=== PATIENT | male | born 1975 | race Caucasian/White ===

== ENCOUNTER 2018-01-29 11:40 | Outpatient (CLI) | payer BC, SELFPAY ==
[2018-01-29 17:05] LABS: Abs Immature Grans 0.01 k/cumm (0.0-0.09); Absolute Basophil Count 0.03 k/cumm (0.0-0.2); Absolute Eosinophil Count 0.09 k/cumm (0.0-0.7); Absolute Lymphocyte Count 2.67 k/cumm (1.2-3.4); Absolute Monocyte Count 0.58 k/cumm (0.11-0.7); Absolute Neutrophil Count 2.75 k/cumm (1.2-6.7); Basophils % 0.5; Eosinophils % 1.5; HCT 42.6 % (40.0-50.0); HGB 14.5 g/dL (13.5-17.5); Immature Grans % 0.2; Lymphocytes % 43.6; Mean Corpuscular Hemoglobin 31.3 pg (27.0-33.0); Mean Platelet Volume 10.1 fL (8.0-11.0); Monocytes % 9.5; Neutrophils % 44.7; Platelet Count 171 x1000/uL (130-400); RBC 4.63 m/cumm (4.50-6.00); RBC Distribution Width 12.4 % (11.8-14.1); White Blood Cell Count 6.13 k/cumm (4.4-10.8)
[2018-01-29 18:19] LABS: ALT 28 U/L (12-78); AST 15 U/L (15-37); Albumin 4.1 g/dL (3.4-5.0); Alkaline Phosphatase 73 U/L (46-116); Anion Gap 7.6 mmol/L (3-11); BUN 19 mg/dL (7-18); Bilirubin, Total 0.3 mg/dL (0.2-1.0); CO2 30.4 mmol/L (21.0-32.0); CREATININE 1.02 mg/dL (0.70-1.30); Calcium 9.2 mg/dL (8.5-10.1); Chloride 102 mmol/L (98-107); Glucose 74 mg/dL (70-100); LDH 130 U/L (85-227); Sodium 140 mmol/L (136-145); Total Protein 6.4 g/dL (6.4-8.2)
== END 2018-01-29 12:00 ==
PROVIDERS: PCP Internal Medicine; Visit Provider Internal Medicine Hematology & Oncology
DX: C83.30 Diffuse large B-cell lymphoma, unspecified site (principal)
CPT/HCPCS: 36415; 80053; 83615; 85025

== ENCOUNTER 2018-07-14 00:45 | Outpatient (CLI) | payer BC, SELFPAY ==
--- NOTE | 2018-07-14 07:30 | MERGE_ITS ---
*[facility]* *[facility]* [address] [place] [address] Date of study: 07/14/2018 Transthoracic Echocardiography M-mode, complete 2D, complete spectral Doppler, and color Doppler *STUDY CONCLUSIONS* Summary: 1. Left ventricle: The cavity size was normal. Wall thickness was normal. Systolic function was normal. The estimated ejection fraction was 60-65%. Wall motion was normal; there were no regional wall motion abnormalities. Diastolic parameters were normal. 2. Mitral valve: Mild thickening, consistent with myxomatous proliferation. There was mild regurgitation. 3. Right ventricle: The cavity size was normal. Wall thickness was normal. Systolic function was normal. *PATIENT PRESENTATION* Height: 177.8cm ((70in) ) S/D Pressure: 120 / 78 Weight: 83.5kg ((183.6lb) ) BSA: 2.04m^2 Test start time: 07:40 AM. Test stop time: 08:40 AM. CONSULTING Arnold Lagunas MD PERFORMING Unknown PERFORMING [facility] [employer] RT Gualberto (Fior)(CT), TIM ORDERING Karma Castillo REFERRING Karma Castillo *PROCEDURE DATA* Procedure information: The patient was identified by two identifiers. This study was interpreted by [facility]. Pertinent images and digital data are archived for permanent storage and are available for subsequent review. No prior study was available for comparison. Study status: Routine. Transthoracic echocardiography. M-mode, complete 2D, complete spectral Doppler, and color Doppler. A Transthoracic Echocardiogram was performed. Scanning was performed from the parasternal, apical, subcostal, and suprasternal notch acoustic windows. Images were obtained using an [id number] cardiac ultrasound machine. Image quality was adequate. Study completion: The patient tolerated the procedure well. There were no complications. 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 C83.38. s/p Chemotherapy. *CARDIAC ANATOMY* Left ventricle: The cavity size was normal. Wall thickness was normal. Systolic function was normal. The estimated ejection fraction was 60-65%. Wall motion was normal; there were no regional wall motion abnormalities. Diastolic parameters were normal. Aortic valve: Trileaflet; normal thickness leaflets. Mobility was not restricted. Doppler: Transvalvular velocity was within the normal range. There was no stenosis. There was no significant regurgitation. VTI ratio of LVOT to aortic valve: 0.74. Valve area (VTI): 2.6cm^2. Indexed valve area (VTI): 1.3cm^2/m^2. Peak velocity ratio of LVOT to aortic valve: 0.73. Valve area (Vmax): 2.5cm^2. Indexed valve area (Vmax): 1.2cm^2/m^2. Mean velocity ratio of LVOT to aortic valve: 0.72. Valve area (Vmean): 2.5cm^2. Indexed valve area (Vmean): 1.2cm^2/m^2. Mean gradient (S): 2.9mm Hg. Peak gradient (S): 4.7mm Hg. Aorta: Aortic root: The aortic root was normal in size. Ascending aorta: The ascending aorta was normal in size. Mitral valve: Mild thickening, consistent with myxomatous proliferation. Mobility was not restricted. No echocardiographic evidence for prolapse. Doppler: Transvalvular velocity was within the normal range. There was no evidence for stenosis. There was mild regurgitation. Valve area by pressure half-time: 3.2cm^2. Indexed valve area by pressure half-time: 1.5cm^2/m^2. Left atrium: The atrium was normal in size. Right ventricle: The cavity size was normal. Wall thickness was normal. Systolic function was normal. Pulmonic valve: Structurally normal valve. Doppler: Transvalvular velocity was within the normal range. There was no evidence for stenosis. There was no significant regurgitation. Tricuspid valve: Structurally normal valve. Doppler: Transvalvular velocity was within the normal range. There was no evidence for stenosis. There was trivial regurgitation. Pulmonary artery: Pulmonary systolic pressure was within the normal range, in the range of 25mm Hg to 30mm Hg. Right atrium: The atrium was normal in size. Catheter noted in right atrium. Pericardium: There was no pericardial effusion. Systemic veins: Inferior vena cava: Well visualized. The vessel was patent and normal in size. The respirophasic diameter changes were in the normal range (greater than or equal to 50%). Baseline ECG: Bradycardia. Measurements Left ventricle Value Reference LV ID, ED, PLAX 5.5 cm 3.5 - 6.0 LV ID, ES, PLAX 3.5 cm 2.1 - 4.0 LV PW thickness, ED, PLAX 0.9 cm LV end-diastolic volume, 1-p A2C 112 ml LV ejection fraction, 1-p A2C 61 % LV end-diastolic volume, 1-p A4C 99 ml LV ejection fraction, 1-p A4C 65 % LV e', lateral 0.132 m/sec LV E/e', lateral 3 LV e', medial 0.088 m/sec LV E/e', medial 5 LV e', average 0.11 m/sec LV E/e', average 4 Ventricular septum Value Reference IVS thickness, ED, PLAX 1.0 cm LVOT Value Reference LVOT ID, A-P 2.1 cm LVOT area 3.4 cm^2 LVOT peak velocity, S 0.79 m/sec LVOT mean velocity, S 0.59 m/sec LVOT VTI, S 17.9 cm LVOT peak gradient, S 2.5 mm Hg LVOT mean gradient, S 1.5 mm Hg Stroke volume (SV), LVOT DP 61 ml Stroke index (SV/bsa), LVOT DP 30 ml/m^2 Aortic valve Value Reference Aortic valve peak velocity, S 1.1 m/sec Aortic valve mean velocity, S 0.82 m/sec Aortic valve VTI, S 24.0 cm Aortic mean gradient, S 2.9 mm Hg Aortic peak gradient, S 4.7 mm Hg VTI ratio, LVOT/AV 0.74 Aortic valve area, VTI 2.6 cm^2 Velocity ratio, peak, LVOT/AV 0.73 Aortic valve area, peak velocity 2.5 cm^2 Velocity ratio, mean, LVOT/AV 0.72 Aortic valve area, mean velocity 2.5 cm^2 Aortic valve area/bsa, mean velocity 1.2 cm^2/m^2 Aorta Value Reference Aortic root ID, ED 3.1 cm Ascending aorta ID, A-P, S 3.3 cm Left atrium Value Reference LA ID, A-P, ES 3.1 cm LA ID/bsa, A-P 1.5 cm/m^2 <=2.2 LA area, ES, A4C 19.3 cm^2 8.8 - 23.4 LA area, ES, A2C 18 cm^2 LA volume/bsa, ES, 1-p A4C 29 ml/m^2 LA volume, ES, 2-p 53 ml LA volume/bsa, ES, 2-p 26 ml/m^2 LA/aortic root ratio 0.99 Mitral valve Value Reference Mitral E-wave peak velocity 0.46 m/sec Mitral A-wave peak velocity 0.37 m/sec Mitral deceleration time (H) 241 ms 150 - 230 Mitral pressure half-time 70 ms Mitral E/A ratio, peak 1.24 Mitral valve area, PHT, DP 3.2 cm^2 Pulmonary veins Value Reference Pulmonary vein peak velocity, S 0.55 m/sec Pulmonary vein peak velocity, D 0.44 m/sec Pulmonary vein velocity ratio, peak, 1.25 S/D Pulmonary vein A-wave reversal peak 0.25 m/sec velocity Tricuspid valve Value Reference Tricuspid regurg peak velocity 2.3 m/sec Tricuspid peak RV-RA gradient 21.7 mm Hg Right atrium Value Reference RA area, ES, A4C 14.3 cm^2 8.3 - 19.5 Legend: (L) and (H) sadi values outside specified reference range. I have personally reviewed the images and have reviewed and edited the reported findings. Electronically signed by Car Whitney 07/14/2018 09:13
== END 2018-07-14 01:05 ==
PROVIDERS: PCP Internal Medicine; Visit Provider Nurse Practitioner Family
DX: C83.38 Diffuse large B-cell lymphoma, lymph nodes of multiple sites (principal); Z92.21 Personal history of antineoplastic chemotherapy; I34.0 Nonrheumatic mitral (valve) insufficiency
CPT/HCPCS: 93306

== ENCOUNTER 2020-04-10 12:38 | Outpatient (REF) | payer BC, SELFPAY ==
[2020-04-10 15:44] LABS: HCT 40.8 % (40.0-50.0); MCH 31.7 pg (27.0-33.0); MCHC 34.3 % (32.0-36.0); MCV 92.3 fL (80-95); MPV 10.5 fL (8.0-11.0); Platelet Count 169 10^3/uL (130-400); RBC 4.42 10^6/uL (4.36-5.78); RDW 11.9 % (11.8-14.1); RDW-SD 41.1 fL
[2020-04-10 16:21] LABS: ALT 30 U/L (16-63); AST 22 U/L (15-37); Alkaline Phosphatase 76 U/L (46-116); Anion Gap 5.9 mmol/L (3-11); BUN 15 mg/dL (7-18); Bilirubin, Total 0.4 mg/dL (0.2-1.0); CO2 30.1 mmol/L (21.0-32.0); CREATININE 1.09 mg/dL (0.70-1.30); Chloride 103 mmol/L (98-107); Glucose 84 mg/dL (74-106); Sodium 139 mmol/L (136-145); TSH 2.68 uIU/mL (0.36-3.74); Total Protein 6.3 g/dL (6.4-8.2)
[2020-04-10 21:28] LABS: PSA, Screening 0.6 ng/mL (0.0-2.5)
[2020-04-12 11:06] LABS: IgA 244 mg/dL (85-499); Interpretation (See Note); Tissue Transglutaminase IgA <1.2 U/mL (<4.0)
[2020-04-13 16:42] LABS: Testosterone, Free 4.28 ng/dL (4.26-16.4); Testosterone, Total 306 ng/dL (240-950)
== END 2020-04-10 12:58 ==
LOC: NCHCN 12:38
PROVIDERS: PCP Internal Medicine; Visit Provider Internal Medicine
DX: Z85.72 Personal history of non-Hodgkin lymphomas (principal)
CPT/HCPCS: 80053; 82784; 83516; 84153; 84402; 84403; 85027; 84443

== ENCOUNTER 2020-09-11 08:55 | Day surgery (SDC) | payer BC, SELFPAY ==
--- NOTE | 2020-09-11 06:49 | W.COLOREPORT ---
Date of service: 09/11/20 Time of Service: 11:21 Colonoscopy Report Date of procedure: 09/11/20 Pre-op diagnosis general: Colon Cancer Screening Post-op diagnosis procedure note: other (polyps) Procedure: Colonoscopy with polypectomy Surgeon: Natalia Florian Anesthesia Type: General:No Airway (ASA 2/Kiara Dao, ODALYS) Estimated blood loss (mL): 3 Pathology: other (Ascending polyp, Transverse polyp) Complications: None Disposition: same day Indications: The patient is here for Colonoscopy pre-op. He has no family history of colon cancer. He has not had any bowel habit changes. -Discussed colonoscopy bowel prep as well as the procedure. Discussed possible complications of the procedure to include bleeding, pain, perforation, missed small lesion/polyp, sore throat, aspiration and adverse reaction to the medications. Questions were answered to patient?s satisfaction. No guarantees were implied or given. Prep: Miralax/Dulcolax Procedure Start Time: 10:58 Procedure End Time: 11:16 Retraction Time: 11 minutes Findings: 2 small polyps Procedure Description: After informed consent was obtained the patient was taken to the procedure room and placed in a left decubitous position. Monitors were applied and a time out was done. The patients name, date of , procedure, allergies to medications and metal in their body was reviewed. The patient was then sedated. Once sedated and comfortable a rectal exam was done. External exam was normal. Internal exam revealed a normal sphincter tone and no palpable masses. The prostate felt smooth and slightly enlarged The scope was then introduced and retro-flexed. No internal hemorrhoids, polyps or masses were identified on retro-flexion. The scope was then advanced to the cecum without difficulty. The ileocecal vlave and appendiceal orifice were identified. The prep was adequate. The scope was then slowly retracted over 11 minutes back into the rectum. Polyps were removed with cold forceps in the ascending and transverse colon. There was no diverticulosis noted. The scope was removed and the patient was woken up and taken back to Same day surgery in stable condition. The patient tolerated the procedure well and there were no immediate complications. Follow up: The patient should follow up in 3-5 years unless they develop changes in bowel habits or other new gastrointestinal complaints.
--- NOTE | 2020-09-11 06:50 | W.PM.DSUDISC ---
Discharge Plan Disposition Patient Disposition: HOME Condition: Good Discharge Details Reason For Visit: Colonoscopy Attending Provider: Natalia Florian Primary Care Provider: Arnold Lagunas Home Meds and New Rx's Prescriptions: Discontinued bisacodyl [Dulcolax (bisacodyl)] 5 mg tablet,delayed release (DR/EC) 5 mg PO ONCE Qty: 4 RF: 0 polyethylene glycol 3350 17 gram/dose powder 238 g PO ONCE Qty: 238 RF: 0 Discharge Instructions Instructions: Colorectal Polyps (DC) Additional Instructions: Findings: polyps Follow up: 3-5 years Please call if you develop: fevers >101.5 Nausea or Vomiting Abdominal pain that is not transient Rectal bleeding that is more then a tbsp A hard abdomen and inability to pass gas DAY SURGERY UNIT POST ENDOSCOPY INSTRUCTIONS Instructions for everyone who is given Anesthesia: For your safety, please do the following for the next 24 Hours: a. Do not drive or operate dangerous equipment b. Do not drink alcohol beverages or use any recreational drugs for the first 24 hours or while taking pain medications. The medications in your body may have a reaction that can be dangerous. c. Do not make any important decisions or sign any important papers 1. Generally there are no restrictions on your activity after a day or so has gone by, but you may feel a bit fatigued for a few days. 2. After you arrive home you may have a light meal and return to a normal diet as you can tolerate it without feeling sick to your stomach. 3. After surgery, you may feel pain or discomfort. This should be only transient, but if it persists please contact your doctor. 4. If there are any questions regarding the findings of your procedure, please feel free to contact your doctor. 6. If you are unable to contact your doctor with a problem, contact the hospital at [phone]. 7. Continue all your regular medications unless directed otherwise. I understand the above instructions and have no questions. Signature of Patient or Responsible Adult Escort Date/Time Name of Responsible Adult Escort Signature of Nurse Date/Time Activity:: Activity as Tolerated Diet:: As Tolerated Discharge Orders Discharge Orders: Discharge Order (Routine); Ordered 09/11/20 Ordered By: Natalia Florian
[2020-09-11 09:08] VITALS: BP 128/86; PULSE 63; RESP 16; TEMP 36.5; O2SAT 98
[2020-09-11] MEDS: Lactated Ringers 1,000 ML 80 ML IV (09:39)
--- NOTE | 2020-09-11 10:14 | W.ANESPRE ---
General Info Date of Service Date Performed: 09/11/20 Height: 5 ft 10.08 in Weight: 81.6 kg Body Mass Index (BMI): 25.7 Surgical Procedure: Operation Date: 09/11/20 10:20 Proposed Procedures Side Surgeon p Colonoscopy Natalia Florian MD Meds Allergies and Home Medications Allergies Allergy/AdvReac Type Severity Reaction Status Date / Time No Known Allergies Allergy Unverified 08/25/20 08:07 Home Medication Medication Instructions Recorded bisacodyl 5 mg tablet,delayed 5 mg PO ONCE #4 tab 08/25/20 release polyethylene glycol 3350 17 238 g PO ONCE #238 g 08/25/20 gram/dose oral powder Current Visit Medications: Current Medications Generic Name Dose Route Start Last Admin Trade Name Freq PRN Reason Stop Dose Admin Hyoscyamine Sulfate 0.125 mg 09/11/20 06:51 Hyoscyamine 0.125 Mg Sl/Oral/Chew SL DIRECTED PRN Ringer's Solution 1,000 mls @ 80 mls/hr 09/11/20 06:00 09/11/20 09:39 IV 10/08/20 23:59 80 mls/hr INFUSION NOMAN Administration IV Miscellaneous Supplies 1 each 09/11/20 06:00 Iv Access IV 10/08/20 23:59 DIRECTED NOMAN Ondansetron HCl 4 mg 09/11/20 06:51 Ondansetron 4 Mg/2 Ml Vial IVP Q4H PRN PRN Nausea / Vomiting Sodium Chloride 0 ml 09/11/20 06:00 Normal Saline Flush 10 Ml Syr IV 10/08/20 23:59 PRN PRN Sodium Chloride 0 ml 09/11/20 06:00 Normal Saline 10 Ml Vial IJ 10/08/20 23:59 DIRECTED PRN Sterile Water 0 ml 09/11/20 06:00 Water,Injection,Sterile 10 Ml Vial IJ 10/08/20 23:59 DIRECTED PRN PFSH Active Problems Active Problems: Problem Status Onset Code Screening for colon cancer Z12.11 Medical History Medical History History of B-cell lymphoma Surgical History Surgical History History of arthroscopic knee surgery History of stem cell transplant S/P ACL repair Tobacco Smoking/Tobacco Use Status: Never Alcohol Alcohol Intake: current Alcohol intake frequency: a few times a week Alcohol type: beer Substance Use Substance use: Occasionally Substance use type: marijuana Vital Signs and Lab Results Vital Signs Most Recent Vital Signs in EMR: Most Recent Vital Signs Temp Pulse Resp BP Pulse Ox 36.5 C 63 16 128/86 98 09/11/20 09:08 09/11/20 09:08 09/11/20 09:08 09/11/20 09:08 09/11/20 09:08 Lab Results Blood Type / Crossmatch: No Data to Display Complete Blood Count: No Data to Display Complete Metabolic Panel: No Data to Display Liver Function Panel: No Data to Display Coagulation Panel: No Data to Display Cardiac Panel: No Data to Display Arterial Blood Gas: No Data to Display Venous Blood Gas: No Data to Display Pancreas Panel: No Data to Display Thyroid Panel: No Data to Display Infectious Disease: No Data to Display Blood Cultures: No Data to Display Toxicology Panel: No Data to Display Imaging and Studies Imaging and Studies Echocardiogram Summary: Summary: 1. Left ventricle: The cavity size was normal. Wall thickness was normal. Systolic function was normal. The estimated ejection fraction was 60-65%. Wall motion was normal; there were no regional wall motion abnormalities. Diastolic parameters were normal. 2. Mitral valve: Mild thickening, consistent with myxomatous proliferation. There was mild regurgitation. 3. Right ventricle: The cavity size was normal. Wall thickness was normal. Systolic function was normal.07/14/18 Anesthesia Assessment and Plan Anesthesia History Personal History: No History of Anesthesia Complications Family History: No Family History of Anesthesia Complications Exercise Tolerance Exercise Tolerance: Metabolic Equivalents<4 Pertinent Negatives Pertinent Negatives: No Symptoms of GERD, No Major Cardiovascular Symptoms or Complaints and No Major Pulmonary Symptoms or Complaints Cardiac & Pulmonary Exam Cardiac Exam: Normal S1/S2 Heart Sounds Pulmonary Exam: Clear Bilateral Breath Sounds Airway Exam Known Difficult Airway: No Mallampati Class: 2 Mouth Opening: Normal (> 3cm) Thyromental Distance: Greater than 3 cm Neck Range of Motion: Full ROM Neck Circumference: Normal Teeth Condition: Normal Dentition ASA Classification ASA Score: ASA 2 Emergency Case?: No NPO Status NPO Status: NPO Clears >2 hours, Solids >8 hours Anesthesia Plan Resuscitation Status: Full Code Anesthesia Technique: General Anesthesia Airway Planned: Natural Airway Monitors Used: Standard Monitors
[2020-09-11 10:41] VITALS: BMI 25.7
--- NOTE | 2020-09-11 11:08 | BOWEL_PTH ---
PATIENT: Gideon Stauffer LOC: [facility] U#:[id number] AGE/SX: 45/M ROOM: RE09/11/[address]: Natalia Florian MD : 1975 BED: DIS: 09/11/2020 SPEC #: [id number] RECD: 09/11/20 13:02 STATUS: CALEB REQ #: [id number] DEMARCO: 09/11/20 11:[address]: Natalia Florian DEPT: Surgical Specimen RECD BY: Hailey Fox ENTERED: 09/11/20 13:03 SP TYPE: Bowel OTHR DR: Arnold Lagunas Tissues: 1 - BIOPSY BOWEL 2 - BIOPSY BOWEL Procedures: GROSS AND MICRO LEVEL 4 Comments: [id number]
[2020-09-11 11:27] VITALS: BP 128/72; PULSE 57; RESP 16; TEMP 36.4; O2SAT 100
--- NOTE | 2020-09-11 11:29 | W.ANESPOSTOP ---
Postoperative Evaluation Date, Time and Location Date Performed: 09/11/20 Time Performed: 11:29 Patient Location: Day Surgery Unit Vital Signs Most Recent Imported Vital Signs: Most Recent Vital Signs Temp Pulse Resp BP Pulse Ox 36.5 C 63 16 128/86 98 09/11/20 09:08 09/11/20 09:08 09/11/20 09:08 09/11/20 09:08 09/11/20 09:08 Most Recent Manually Entered Vital Signs: Adult Blood Pressure: 128/72 Heart Rate: 54 Respirations: 14 Oxygen Saturation (%): 100 Temperature (C): 36.2 C Pain Score (0-10 Scale): 0 Pain Score Most Recent Pain Score: 0 Assessment Mental Status: Arousable with meaningful communication Airway and Respiratory Function: Patent airway with normal (patient baseline) respiratory exam Cardiovascular Function: Hemodynamically Stable Hydration Status: Adequately Hydrated Nausea & Vomiting: No Nausea or Vomiting Pain: Pt. Denies Any Pain Peripheral Nerve Block: Patient did not receive a nerve block
[2020-09-11 11:30] VITALS: BP 128/72; PULSE 54; RESP 14; TEMPC 36.2; O2SAT 100
[2020-09-11 11:56] VITALS: BP 142/95; PULSE 56; RESP 16; TEMP 36.3; O2SAT 99
== END 2020-09-11 12:10 | disposition home or self-care (01) ==
LOC: SUR 08:56
PROVIDERS: PCP Internal Medicine; Visit Provider Surgery
PROC: 0DJD8ZZ Inspection of Lower Intestinal Tract, Via Natural or Artificial Opening Endoscopic (ICD-10-PCS; CPT 45378; principal; 2020-09-11 10:15)
DX: Z12.11 Encounter for screening for malignant neoplasm of colon (principal); D12.2 Benign neoplasm of ascending colon; Z94.84 Stem cells transplant status; Z85.72 Personal history of non-Hodgkin lymphomas
CPT/HCPCS: 45380; 88305

== ENCOUNTER 2021-03-01 01:50 | Outpatient (CLI) | payer BC, SELFPAY ==
--- NOTE | 2021-03-01 | DI.US_ITS ---
APPROVED REPORT EXAM: Comprehensive 2D, Doppler, and color-flow Echocardiogram Patient Location: Out-Patient [facility] Technical Architect: Sarah Clark RDCS (AE) Indications: H/O B Cell Lymphoma, Anthracycline Other Information Study Quality: Good Conclusion Normal left ventricular wall thickness and chamber size. Estimated ejection fraction is 60%. Wall m otion is normal Normal right ventricular size and systolic function Both atria are normal in size There is no structural or hemodynamically significant valvular disease Wall motion Left Ventricle The left ventricle is normal size. The left ventricular systolic function is normal. The left ventric ular ejection fraction is within the normal range. There is normal left ventricular wall thickness. T here is normal LV segmental wall motion. There is no ventricular septal defect visualized. LVEF is 60 %. Right Ventricle The right ventricle is normal size. The right ventricular systolic function is normal. The RVSP is 10 .4mmHg. Atria The left atrium size is normal. The right atrium size is normal. The interatrial septum is intact wit h no evidence for an atrial septal defect. Aortic Valve The aortic valve is normal in structure. Aortic valve is trileaflet. There is no aortic valvular sten osis. No aortic regurgitation is present. Mitral Valve The mitral valve is normal in structure. No evidence of mitral valve stenosis. Trace mitral regurgita tion. Tricuspid Valve The tricuspid valve is normal in structure. There is no tricuspid valve stenosis. Trace tricuspid reg urgitation. Pulmonic Valve The pulmonary valve is normal in structure. There is no pulmonic valvular stenosis. There is no pulmo brandon valvular regurgitation. Great Vessels The aortic root is normal in size. The ascending aorta is normal in size. Aortic arch is normal in ca liber. IVC is normal in size and collapses >50% with inspiration. Pericardium There is no pericardial effusion. 2D Dimensions IVSD d PLAX 0.84 cm M: 0.6-1.2 LV Vol A2C d MOD 100.7 mL LVPW d PLAX 0.83 cm M: 0.6 - 1.2 LV Vol A4C d MOD 119.2 mL LVID d PLAX 5.05 cm M: 4.2 - 5.8 LA vol/ BSA A2C s A-L 34.1 mL/m2 LVDs 3.20 cm M: 2.5 - 4.0 LA vol/ BSA A4C s A-L 23.9 mL/m2 Ao Root d 3.20 cm M: 3.1 - 3.7 LA Vol/ BSA Biplane s A-L 28.6 mL/m2 RA Area A4C 12.74 cm2 LA Area A4C s MOD 13.82 cm2 RA Vol/ BSA A4C s A-L 21.9 mL/m2 LA Area A2C s MOD 16.58 cm2 Ao Asc Diam d 3.29 cm M: 2.6 - 3.4 LV EF A4C MOD 60.6 % LV EF Teichholz 65.3 % LV EF A2C MOD 60.6 % LVEF (Nur's) 60.95 % M: 52 - 72 LV EF Biplane MOD 61.0 % LV Volume 95.14 mL M: 62 - 150 SV 68.52 mL LV Volume Index 66.06 mL/m2 M: 34 - 74 SV Index 47.46 mL/m2 LV Vol Biplane MOD 112.4 mL FS 35.95 % M-Mode TAPSE 2.43 cm (M/F) >1.7 LV Diastology MV E' medial 0.057 (>0.07 m/s) E/A Ratio 0.9 LV E/e MED 8.20 (<14) MV E Vmax 0.47 (0.4-1.3 m/s) MV E' lateral 0.092 (>0.1 m/s) MV A Vmax 0.55 (0.4-1.3 m/s) LV E/e LAT 5.15 (<14) MV E/A Ratio 0.79 MV E/E' medial 8.23 MV E/E' lateral 5.16 Aortic Valve LVOT Area 3.75 cm2 AoV Area Vmax 3.28 cm2 LVOT Vmax 0.89 m/s AoV Area/ BSA (Vmax) 2.27 cm2/m2 LVOT Mean Deni. 0.56 m/s CARRI Mean Deni. 2.71 cm2 LVOT Peak Grad 3.2 mmHg CARRI Mean Deni. Index 1.88 cm2/m2 LVOT Mean Grad 1.5 mmHg LVOT VTI 0.192 m LVOT Diam s 2.15 cm AoV Vmax 1.02 m/s Velocity Ratio 0.87 AoV Mean Deni. 0.77 m/s AoV Peak Grad 4.2 mmHg LVOT SV 72.11 mL AoV Mean Grad 2.6 mmHg AoV VTI 0.212 m AoV Area VTI 3.40 cm2 AoV Area/ BSA (VTI) 2.36 cm/m2 Mitral Valve MV DT 320 (160-240 msec) MV PHT 93 msec MV Area PHT 2.37 cm2 MV VTI 0.213 m MV Area VTI 3.38 (4.0-6.0 cm2) Pulmonary Valve PV Vmax 1.14 (0.5-1.5 m/s) RVOT Peak Gr. 1.58 mmHg PV Peak Grad 5.2 mmHg RVOT Mean Gr. 0.80 mmHg PV Mean Grad 2.6 mmHg RVOT VTI 0.143 m PV VTI 0.220 m RVOT Vmax 0.63 m/s Tricuspid Valve TR Peak Grad 7.4 mmHg TR Vmax 1.36 m/s RA Pressure 3.00 mmHg RVSP (TR) 10.4 mmHg
== END 2021-03-01 02:10 ==
PROVIDERS: PCP Internal Medicine; Visit Provider Nurse Practitioner Family
DX: Z08 Encounter for follow-up examination after completed treatment for malignant neoplasm (principal); Z92.21 Personal history of antineoplastic chemotherapy; Z85.72 Personal history of non-Hodgkin lymphomas
CPT/HCPCS: 93306

== ENCOUNTER 2021-03-21 01:55 | Outpatient (CLI) | payer BC, SELFPAY ==
[2021-03-21] MEDS: Normal Saline Flush 10 ML SYR IVP (08:01)
[2021-03-21] MEDS: Gadoterate meglumine 20 ML VIAL 17 ML IVP (08:03)
--- NOTE | 2021-03-21 08:45 | DI.MRI_ITS ---
Exam(s) MR LUMBAR SPINE WO/W EXAM: MR LUMBAR SPINE WO/W CLINICAL HISTORY: 6 WKS WORSENING LT SCIATICA DESPITE PT, M54.32; H/O LYMPHOMA IN REMISSION. TECHNIQUE: Multiplanar multisequence MRI was performed. COMPARISON: No exams were available for comparison FINDINGS: MR examination lumbosacral spine was performed according to the usual protocol. Additional pre and post contrast T1 fat sat imaging was also obtained. Bony signal appears intact throughout the lumbar region. There is no evidence of metastatic lesion o r other bony lesion. No paraspinal mass or adenopathy. Conus medullaris is well maintained. No significant findings from the T12-L1 level to the L3-4 level . No evidence of disc herniation, central canal spinal stenosis, or neural foraminal stenosis at the se levels. At the L4-5 level, there is a moderate to large size central and left-sided disc herniation which als o projects inferior to the disc level and may impinge the left L5 nerve root. The S1 and/or S2 nerve roots may also be impinged on this side. The neural foramen is well maintained. No bony central ca nal spinal stenosis. At L5-S1, there is a mild disc bulge without evidence of disc herniation, central canal spinal stenos is, or neural foraminal stenosis. Post contrast imaging shows mild enhancement associated with the margins of the apparent L4-5 herniat ed disc, this is consistent with relatively acute process. IMPRESSION: Central and left lateral disc herniation at L4-5 with associated neural impingement as described indigo e. No evidence of bony metastatic disease. DATA REPOSITORY:
== END 2021-03-21 02:15 ==
PROVIDERS: PCP Internal Medicine; Visit Provider Internal Medicine
DX: M54.32 Sciatica, left side (principal); M51.16 Intervertebral disc disorders with radiculopathy, lumbar region
CPT/HCPCS: 72158

== ENCOUNTER 2023-05-02 16:44 | Outpatient (REF) | payer BC, SELFPAY ==
[2023-05-02 19:22] LABS: HCT 40.9 % (40.0-50.0); HGB 14.1 g/dL (13.5-17.5); MCH 31.6 pg (27.0-33.0); MCHC 34.5 % (32.0-36.0); MCV 92 fL (80-95); MPV 10.4 fL (8.0-11.0); Platelet Count 192 10^3/uL (130-400); RBC 4.46 10^6/uL (4.36-5.78); RDW 12.1 % (11.8-14.1); RDW-SD 41.1 fL
[2023-05-02 19:58] LABS: ALT 38 U/L (16-63); AST 25 U/L (15-37); Alkaline Phosphatase 72 U/L (46-116); Anion Gap 6.4 mmol/L (3-11); BUN 16 mg/dL (7-18); Bilirubin, Total 0.4 mg/dL (0.2-1.0); CO2 29.6 mmol/L (21.0-32.0); Calcium 9.4 mg/dL (8.5-10.1); Chloride 105 mmol/L (98-107); Creatine Kinase 199 U/L (39-308); Estimated GFR 92.84 (mL/min/1.73m2); Glucose 97 mg/dL (74-106); Potassium 4.4 mmol/L (3.5-5.1); Sodium 141 mmol/L (136-145); TSH 1.98 uIU/mL (0.36-3.74); Total Protein 6.5 g/dL (6.4-8.2)
[2023-05-02 20:15] LABS: Calculated LDL 153 mg/dL (<100); Cholesterol 233 mg/dL (<200); HDL Cholesterol 61 mg/dL (40-60); Triglyceride 96 mg/dL (<150)
== END 2023-05-02 16:45 | disposition home or self-care (01) ==
LOC: NCHCN 16:44
PROVIDERS: PCP Internal Medicine; Visit Provider Internal Medicine
DX: Z00.00 Encounter for general adult medical examination without abnormal findings (principal); Z13.220 Encounter for screening for lipoid disorders; Z13.29 Encounter for screening for other suspected endocrine disorder; Z13.0 Encounter for screening for diseases of the blood and blood-forming organs and certain disorders involving the immune mechanism; Z13.228 Encounter for screening for other metabolic disorders
CPT/HCPCS: 80053; 80061; 82550; 85027; 84443

== ENCOUNTER → 2023-06-12 04:30 | Outpatient (CLI) | payer BC, SELFPAY ==
--- NOTE | 2023-06-12 | DI.US_ITS ---
APPROVED REPORT EXAM: Comprehensive 2D, Doppler, and color-flow Echocardiogram Patient Location: Out-Patient Cow Buyer: Sarah Clark RDCS (AE) Indications: h/o lymphoma Other Information Study Quality: Good Conclusion Normal left ventricular wall thickness and chamber size. Ejection fraction is 57 percent. Wall chano on is normal Normal right ventricular size and function Both atria are normal in size There is no structural or hemodynamically valvular disease Wall motion Left Ventricle The left ventricle is normal size. The left ventricular systolic function is normal. The left ventric ular ejection fraction is within the normal range. There is normal left ventricular wall thickness. T here is normal LV segmental wall motion. There is no ventricular septal defect visualized. LVEF is 57 %. Right Ventricle The right ventricle is normal size. The right ventricular systolic function is normal. Atria The left atrium size is normal. The right atrium size is normal. The interatrial septum is intact wit h no evidence for an atrial septal defect. Aortic Valve The aortic valve is normal in structure. Aortic valve is trileaflet. There is no aortic valvular sten osis. Mitral Valve The mitral valve is normal in structure. No evidence of mitral valve stenosis. Trace mitral regurgita tion. Tricuspid Valve The tricuspid valve is normal in structure. There is no tricuspid valve stenosis. Trace tricuspid reg urgitation. Unable to assess PA pressure. Pulmonic Valve The pulmonary valve is normal in structure. There is no pulmonic valvular stenosis. There is no pulmo brandon valvular regurgitation. Great Vessels The aortic root is normal in size. The ascending aorta is normal in size. Aortic arch is normal in ca liber. IVC is normal in size and collapses >50% with inspiration. Pericardium There is no pericardial effusion. 2D Dimensions IVSD d PLAX 0.91 cm M: 0.6-1.2 Ao Root d 3.09 cm M: 3.1 - 3.7 LVPW d PLAX 0.85 cm M: 0.6 - 1.2 Ao Asc Diam d 3.40 cm M: 2.6 - 3.4 LVID d PLAX 5.21 cm M: 4.2 - 5.8 LVDs 3.65 cm M: 2.5 - 4.0 LV EF Teichholz 56.7 % FS 29.90 % LV EDV (Teich) 130.1 mL LV ESV (Teich) 56.4 mL M-Mode TAPSE 2.45 cm (M/F) >1.7 Auto EF LV EDV A4C 118.7 mL LV EDV A2C 144.2 mL LV EDV BP 130.8 mL LV ESV A4C 52.7 mL LV ESV A2C 61.2 mL LV ESV BP 56.9 mL LVEF(%) A4C 55.6 % LVEF(%) A2C 57.6 % LVEF(%) BP 56.5 % LV SV A4C 66.0 ml LV SV A2C 83.0 ml LV SV BP 73.9 ml LV CO A4C 3.5 L/min LV CO A2C 4.6 L/min LV CO BP 4.0 L/min HR A4C 52.94 BPM HR A2C 54.80 BPM LV EDV Index (BP) LV Strain Long Pk Overal Avg (s) 18.67 LA Volume LA Length A4C 5.3 cm LA Length A2C 5.1 cm LA Area A4C s 20.98 cm2 LA Area A2C s 20.92 cm2 LA Vol A4C A-L 69.96 mL LA Vol A2C A-L 73.22 mL LA Vol Biplane A-L 73.4 mL LA Vol/BSA A4C A-L LA Vol/BSA A2C A-L LA Vol/BSA BP A-L 36.4 mL/m2 LA Vol A4C MOD 64.1 mL LA Vol A2C MOD 67.9 mL LA Vol BP MOD 67.3 mL RA Volume RA Area A4C 12.2 cm2 RA ESV A4C (A-L) 32.4mL RA Vol/BSA A4C A-L RA Length A4C 3.9 cm RA ESV A4C (MOD) 31.4mL LV Diastology MV E' medial 0.067 (>0.07 m/s) MV E Vmax 0.60 (0.4-1.3 m/s) MV E/E' MED 8.90 (<14) MV A Vmax 0.55 (0.4-1.3 m/s) MV E' lateral 0.092 (>0.1 m/s) E/A Ratio 1.1 MV E/E' LAT 6.48 (<14) MV E' Average 0.079 m/s MV E/E'(average) 7.50 Aortic Valve AoV Vmax 1.10 m/s LVOT Vmax 0.79 m/s AoV Peak Grad 4.8 mmHg LVOT Peak Grad 2.5 mmHg AoV Area (Vmax) 2.42 cm2 LVOT VTI 0.201 m AoV VTI 0.245 m LVOT Mean Grad 1.2 mmHg AoV Mean Deni. 0.79 m/s LVOT SV 67.67 mL AoV Mean Grad 2.8 mmHg LVOT Diam s 2.05 cm AoV Area (VTI) 2.77 cm2 Velocity Ratio 0.72 Mitral Valve MV DT 147 (160-240 msec) MV Vmax TIPS 0.80 m/s MV Mean Grad 1.2 (<2mmHg) MV VTI 0.203 m Pulmonary Valve PV Vmax 1.18 (0.5-1.5 m/s) RVOT Vmax 0.67 m/s PV Peak Grad 5.6 mmHg RVOT Peak Gr. 1.8 mmHg PV Mean Deni 0.73 m/s RVOT VTI 0.160 m PV Mean Grad 2.6 mmHg RVOT Mean Gr. 1.0 mmHg Tricuspid Valve TV S' 0.14 m/s
== END ==
PROVIDERS: PCP Internal Medicine; Visit Provider Internal Medicine
DX: C85.90 Non-Hodgkin lymphoma, unspecified, unspecified site (principal)
CPT/HCPCS: 93306

== ENCOUNTER 2025-01-13 10:14 | Outpatient (REF) | payer BC, SELFPAY ==
[2025-01-13 19:45] LABS: Abs Immature Grans 0.00 10^3/uL (0.0-0.06); HCT 44.4 % (40.0-50.0); HGB 15.1 g/dL (13.5-17.5); Immature Grans % 0.0 %; MCH 31.9 pg (27.0-33.0); MCHC 34.0 % (32.0-36.0); MCV 94 fL (80-95); MPV 10.7 fL (8.0-11.0); Platelet Count 183 10^3/uL (130-400); RBC 4.74 10^6/uL (4.36-5.78); RDW 12.0 % (11.8-14.1); RDW-SD 42.1 fL; WBC 5.11 10^3/uL (4.4-10.8)
[2025-01-13 19:57] LABS: ALT 39 U/L (16-63); AST 19 U/L (15-37); Albumin 3.9 g/dL (3.4-5.0); Alkaline Phosphatase 74 U/L (46-116); Anion Gap 3.0 mmol/L (3-11); BUN 16 mg/dL (7-18); Bilirubin, Total 0.5 mg/dL (0.2-1.0); CO2 33.0 mmol/L (21.0-32.0); Calcium 9.3 mg/dL (8.5-10.1); Chloride 104 mmol/L (98-107); Glucose 87 mg/dL (74-106); Potassium 4.8 mmol/L (3.5-5.1); Sodium 140 mmol/L (136-145); Total Protein 6.4 g/dL (6.4-8.2)
[2025-01-13 20:01] LABS: C & S Indicated? No; RBC Negative HPF (0-2); WBC Negative HPF (0-5)
[2025-01-14 04:23] LABS: Cholesterol 279 mg/dL (<200); HDL Cholesterol 53 mg/dL (>or=40)
[2025-01-14 21:07] LABS: PSA, Screening 0.6 ng/mL (<=3.5)
== END 2025-01-13 10:15 | disposition home or self-care (01) ==
LOC: NCHCN 10:14
PROVIDERS: PCP Internal Medicine; Visit Provider Nurse Practitioner Family
DX: Z12.5 Encounter for screening for malignant neoplasm of prostate (principal); Z00.00 Encounter for general adult medical examination without abnormal findings
CPT/HCPCS: 80053; 80061; 84153; 81015; 84154; 85025